=== PATIENT | female | born 1935 ===

== ENCOUNTER 2019-03-13 10:30 | Emergency (ER) | payer OTHER ==
[~2019-03-13] VITALS: Ht 157.5 cm; Wt 53.5 kg
[2019-03-13] MEDS ORDERED: LIPITOR20 MG (11:22)
[2019-03-13] MEDS ORDERED: SYNTHROID50 MCG (11:22)
[2019-03-13] MEDS ORDERED: CILOSTAZOL100 MG (11:23)
[2019-03-13] MEDS ORDERED: ASPIR 8181 MG (11:23)
[2019-03-13] MEDS ORDERED: NAMENDA5 MG (11:23)
[2019-03-13] MEDS ORDERED: ARICEPT10 MG (11:23)
[2019-03-13] MEDS ORDERED: COZAAR50 MG (11:23)
[2019-03-13] MEDS ORDERED: RESTORIL15 M1 (11:24)
[2019-03-13] MEDS ORDERED: SEROQUEL25 MG (11:24)
[2019-03-13] MEDS ORDERED: PERCOCET 5-3251 EACH (11:24)
== END 2019-03-13 16:05 | disposition home or self-care (01) ==
LOC: ER 10:30
DX: L97.428 Non-pressure chronic ulcer of left heel and midfoot with other specified severity (principal)